=== PATIENT | male | born 1960 | race Caucasian/White ===

== ENCOUNTER → 2018-05-11 12:01 | Outpatient (CLI) | payer BC, SELFPAY ==
--- NOTE | 2018-05-11 12:08 | RAD_ITS ---
STUDY: X-RAY - LUMBAR SPINE REASON FOR EXAM: Male, 58 years old. lumbago with sciatica TECHNIQUE: 5 view(s) of the lumbar spine were obtained. COMPARISON: None FINDINGS: Normal lumbar lordosis. There is multilevel endplate spondylosis of the lumbar vertebrae. There is multi-level degenerative disc disease with multi-level disc space narrowing. The soft tissue structures are unremarkable. RAD/L/S Spine Min 4 Views IMPRESSION: Degenerative changes of the spine. Electronically Signed: Joesph Cuevas MD at 9:40 EST Tel , Service support ,
[2018-05-11 14:25] LABS: Anion Gap 10 (5-15); BUN 15 mg/dL (7-18); BUN/Creat Ratio 13.9 RATIO (10-20); Calcium,Total 9.1 mg/dL (8.5-10.1); Chloride 107 mmol/L (98-107); Cholesterol 256 mg/dL (200); Creatinine, Serum 1.08 mg/dL (0.70-1.30); EST Glomerular Filtration Rate 75 mL/min (>60); Est Glom Filt Rate - Afr Amer 90 mL/min (>60); Glucose 94 mg/dL (74-106); High Density Lipoprotein 59 mg/dL; PSA,Total - Annual Screen 0.69 ng/mL (0.00-4.00); Potassium 4.1 mmol/L (3.5-5.1); Sodium Level 138 mmol/L (136-145); Triglycerides 160 mg/dL; Very Low Density Lipoprotein 32 mg/dL (5-40)
== END ==
PROVIDERS: Family Provider Family Medicine; PCP Family Medicine; Referring Provider Family Medicine; Visit Provider Family Medicine
DX: Z00.00 Encounter for general adult medical examination without abnormal findings (principal); M54.41 Lumbago with sciatica, right side
CPT/HCPCS: 36415; 72110; 80048; 80061; 84153; G0103

== ENCOUNTER → 2018-05-18 10:34 | Outpatient (CLI) | payer BC, SELFPAY ==
--- NOTE | 2018-05-18 10:36 | MRI_ITS ---
STUDY: MRI LUMBAR SPINE WITHOUT CONTRAST REASON FOR EXAM: Male, 58 years old. Pain with right lower extremity radiculopathy TECHNIQUE: Standardized fat and water weighted pulse sequences were obtained in the sagittal and axial planes. COMPARISON: None FINDINGS: T12-L1: Normal endplates. Normal disc height, hydration and morphology. Normal bilateral facet joints. Normal central canal and bilateral lateral recesses. Normal bilateral intervertebral neural foramina. Normal lumbar lordosis. There is no substantial scoliosis. Normal conus medullaris that terminates at the L1-2: Normal endplates. There is mild annular disc bulge and mild bilateral facet arthrosis. No central canal or foraminal narrowing.. L2-3: Normal endplates. Normal disc height, hydration and morphology. Normal bilateral facet joints. Normal central canal and bilateral lateral recesses. Normal bilateral intervertebral neural foramina. L3-4: Normal endplates. There is mild annular disc bulge and asymmetric right paracentral, foraminal and extraforaminal disc bulge abutting the descending nerve root. Left greater than right facet arthrosis. No central canal narrowing. Mild right foraminal narrowing. L4-5: Normal endplates. There is moderate intervertebral disc space narrowing and mild annular disc bulge. Bilateral facet arthrosis. Mild to moderate central canal narrowing. Mild left foraminal narrowing. L5-S1: Normal endplates. There is mild posterior disc bulge and annular tear. Left facet arthrosis. No central canal narrowing or foraminal.. Normal visualized sacral ala. Normal visualized paraspinous soft tissue structures. MRI/Spine Lumbar (Routine) IMPRESSION: Multilevel degenerative disc disease is most prominent at L3-L4 and L4-L5 as described above. Electronically Signed: Criselda Biswas, at 16:20 EDT Tel , Service support ,
== END ==
PROVIDERS: Family Provider Family Medicine; PCP Family Medicine; Referring Provider Family Medicine; Visit Provider Family Medicine
DX: M54.41 Lumbago with sciatica, right side (principal)
CPT/HCPCS: 72148

== ENCOUNTER 2018-05-23 11:22 | Outpatient (RCR) | payer BC, SELFPAY ==
--- NOTE | 2018-05-24 10:23 | HP.PTEVAL_ITS ---
Patient's Visit Information SHALINI SANTOS is a 58 year old M referred to Physical Therapy by Jasiel Jain MD with a diagnosis of LUMBAGO W/SCIATICA. Date of Evaluation: 05/23/18 Physical Therapist: Jenna Neff PT, Cert MDT - Visit Plan Frequency: 2-3x /Week Duration: 4-6 Weeks Plan: MODALITIES NEEDED. GARIMA TESTING. POSTURE CORRECTION/STRENGTHENING, INSTRUCTION IN APPROPRIATE BODY MECHANICS AND ACTIVITY MODIFICATIONS. DLS STARTING WITH A NEUTRAL SPINE PROGRESSING ROM TOLERATED. DELMIS LE ROM, STRETCHING AND STRENGTHENING. HEP INSTRUCTION. 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 Disability: NO. Present symptoms: RIGHT LOW BACK INTERMITTENT SHARP PAIN. RIGHT BUTTOCK PAIN, RIGHT HIP PAIN, RIGHT THIGH, LEG AND FOOT PAIN THAT SOMETIMES FEELS COLD/WET. TINGLING IN TOES. NO LLE SX'S. DID HAVE MUSCLE SPASMS IN LOW BACK AT ONSET. Present since: 04/17/18. Pain Scale: WORST 9/10, LEAST 0/10. Currently: 05/15. Commenced as a result of: NO APPARENT REASON. Symptoms at onset: MUSCLE SPASMS IN LOW BACK. Worse: SITTING, WALKING, STANDING, BENDING, LIFTING, DRIVING. Better: LYING DOWN, PAIN MEDICINE. Disturbed sleep: YES. Previous history/Previous treatment: NO BACK SURGERY. NO RIGHT LE SX. NO BACK INJECTIONS. HISTORY OF EPISODIC LBP TREATED BY CHIROPRACTOR FROM THE S TO 2005 AND RETURNED RECENTLY FOR THIS EPISODE. REALLY DID OK FROM 2005 UNTIL NOW. THIS EPISODE HAS HAD PREDNISONE, MUSCLE RELAXER, PAIN MEDICINE AND CHIROPRACTOR TREATMENTS. PREDNISONE AND MUSCLE RELAXER SEEMED TO BE HELPING BUT WENT TO CHIROPRACTOR BECAUSE RIGHT LEG SX'S. TEMPORARY HELP WITH CHIROPRACTIC ADJUSTMENTS AND ESTIM AND US. STILL GOING TO CHIROPRACTOR - STARTED DAILY THEN DECREASED TO AT LEAST 2X'S A WEEK. HE REPORTS HE IS NOT IMPROVING OVER-ALL AT THIS POINT - STAYING THE SAME. PATIENT REPORTS THAT A COUPLE MONTHS BEFORE 2018 FOR A COUPLE WEEKS HE LOST CONTROL OF HIS RIGHT FOOT BUT IT RECOVERED. Coughing/sneezing/straining: NE. Gait: PATIENT REPORTS WHEN HE WALKS HE CAN FEEL IT IN HIS HIP, LEG AND TOES AND IT CAUSES HIM TO LIMP RIGHT LE. LEFT LEG IS FINE. Difficulty initiating urinatin: NO. Accidents: NO. Unexplained weight loss: NO. Imaging: RECENT LUMBAR X- RAYS AND MRI WITH MRI STATING: L3-4: Normal endplates. There is mild annular disc bulge and asymmetric. right paracentral, foraminal and extraforaminal disc bulge abutting the. descending nerve root. Left greater than right facet arthrosis. No. central canal narrowing. Mild right foraminal narrowing. L4- 5: Normal endplates. There is moderate intervertebral disc space. narrowing and mild annular disc bulge. Bilateral facet arthrosis. Mild to. moderate central canal narrowing. Mild left foraminal narrowing. L5-S1: Normal endplates. There is mild posterior disc bulge and annular. tear. Left facet arthrosis. No central canal narrowing or foraminal.. Normal visualized sacral ala. Normal visualized paraspinous soft tissue structures. MRI/Spine Lumbar (Routine). IMPRESSION: Multilevel degenerative disc disease is most prominent at L3-L4 and L4-L5. PMH: UNREMARKABLE. Recent major surgery: NO. PLOF (Prior Level of Function): UNLIMITED. OTHER: PATIENT REPORTS HE IS VERY ACTIVE. QUESTIONING HOW PHYSICAL THERAPY IS GOING TO HELP HIM OVER COME THIS BECAUSE HE WAS ALREADY PHYSICAL. HE REPORTS HE HAS A TREADMILL AND HE EXERCISES AND STRETCHES ON A DAILY BASIS INCLUDING TOUCHING TOES IN THE MORNING. - Objective Sitting/Standing Posture: POOR. SLOUCHED. FOWARD HEAD. ROUNDED SHOULDERS. Lordosis: REDUCED. Lateral shift: NO. Relevant shift: N/A. Active Correction of posture: WORSE - PERIPHERALIZES. Other Observations: INDEP GAIT INTO PT LIMPING ON RIGHT LE WITH INCREASED TRUNK FLEXION AND NO AD AND NO LOB. Motor deficit: RIGHT HIP 4/5, KNEE EXT 4/5, KNEE FLEX 4/5, ANKLE DORSIFLEX 4/5. LLE 5/5. Sensory deficit: DECREASED LIGHT TOUCH RIGHT TOES COMPARED TO THE LEFT. ROM deficit: TIGHT DELMIS HS'S, GASTROC SOLEUS COMPLEX AND HIP FLEXORS RIGHT > LEFT. Reflexes: UNABLE TO ELICIT RIGHT LE DTRS. LEFT DTR'S 2/3. Dural Signs: POSITIVE RIGHT LE. Lumbar mvmt loss: flex - NIL. ext - MOD. R SG - PRABHJOT. L SG - PRABHJOT. PATIENT DENIES INCREASED PAIN WITH LUMBAR ROM TESTING WITH FLEX AND EXT BUT INCREASED RIGHT HIP PAIN WITH DELMIS SG TESTING. Core strength: POOR. Palpation: NO ACUTE THORACIC OR LUMBAR, OR BUTTOCK INTO GREATER TROCH REGION TENDERNESS. OTHER: PATIENT STATING THAT HE THINKS HE WOULD PREFER TO CONTINUE WITH HIS CHIROPRACTOR FOR THIS BECAUSE HIS CHIROPRACTOR HAS SUCH A GOOD HANDLE ON WHAT IS GOING ON WITH HIM AND HIS HISTORY. THIS PT RECOMMENDED HE DISCUSS IT WITH DR. JAIN WHEN HE GOES OVER HIS MRI RESULTS WITH HIM. PATIENT MAY BENEFIT FROM PHYSICAL THERAPY PER PLAN OF CARE BELOW IF PATIENT AGREEABLE BUT HE WOULD LIKE TO SEE DR. JAIN TO DISCUSS HIS TREATMENT OPTIONS BEFORE SCHEDULING PT. - Goals Goal 1:: DECREASE C/O LOW BACK AND RIGHT LE SX'S. Goal Time Frame: 4-6 Weeks Goal 2:: IMPROVE SITTING, STANDING, WALKING, ADL, SLEEP AND WORK FUNCTION Goal Time Frame: 4-6 Weeks Goal 3:: INSTRUCT IN PROPHYLAXIS Goal Time Frame: 4-6 Weeks - Rehabilitation Potential Rehabilitation Potential: Fair - Anticipated Interventions Patient/Client Instruction: Educate patient on: Condition, Plan of Care, Risk Factors, Benefits of Fitness Program For the Purpose of:: To improve self management Therapeutic Exercise to Include: Strength training, Body mechanics, Postural training, Flexibilty training, Gait and locomotor training, In an aquatic setting, Active ROM, Dynamic Lumbar Stabilization For the Purpose of:: To decrease pain, To increase ROM, To improve muscle performance and motor function, To increase tolerance to activity/condition/position, To improve ability of physical actions for home/community/work/leisure, To improve gait and locomotor functions TENS: Yes IF ES: Yes Cryotherapy (ice pack, ice massage): Yes Thermo therapy (hot pack): Yes Ultrasound (thermal/non thermal): Yes For the Purpose of:: To decrease pain, To decrease swelling/inflammation, To increase ROM, To improve nutrient delivery to tissue Thank you for the opportunity to evaluate your patient. For Medicare and Medicare HMO plans, please review the plan of care and approve it. It will need to be FAXED BACK to us at [phone] for Medicare purposes. For Medicare only, by signing this I certify the plan of care. Please let me know if there are questions or concerns regarding this plan of care. Physician Signature: Date:
--- NOTE | 2018-08-02 13:35 | HP.PTDCNRP_ITS ---
HP - Discharge Summary (1) - Patient Information SHALINI SANTSO was seen in my office for initial evaluation on 05/23/18. The following Plan of Care was established for this patient: Initial Frequency: 2-3x /Week Initial Duration: 4-6 Weeks - Anticipated Interventions Patient/Client Instruction: Educate patient on: Condition, Plan of Care, Risk Factors, Benefits of Fitness Program For the Purpose of:: To improve self management Therapeutic Exercise to Include: Strength training, Body mechanics, Postural training, Flexibilty training, Gait and locomotor training, In an aquatic setting, Active ROM, Dynamic Lumbar Stabilization For the Purpose of:: To decrease pain, To increase ROM, To improve muscle performance and motor function, To increase tolerance to act ivity/condition/position, To improve ability of physical actions for home/community/work/leisure, To improve gait and locomotor functions TENS: Yes IF ES: Yes Cryotherapy (ice pack, ice massage): Yes Thermo therapy (hot pack): Yes Ultrasound (thermal/non thermal): Yes For the Purpose of:: To decrease pain, To decrease swelling/inflammation, To increase ROM, To improve nutrient delivery to tissue This patient was last seen in our office 05/23/18. Pertinent comments regarding their Physical therapy will appear below: This patient has not returned to Physical Therapy and is appropriate to return to MD for further follow-up as needed. At this point I will be discontinuing this patient from physical therapy. I would be happy to see this patient again in the future if found appropriate by the physician. Thank you! Jenna Nfef, PT, Cert MDT
== END 2018-05-23 19:00 | disposition home or self-care (01) ==
LOC: PT 11:22
PROVIDERS: Family Provider Family Medicine; PCP Family Medicine; Referring Provider Family Medicine; Visit Provider Family Medicine
DX: M54.41 Lumbago with sciatica, right side (principal)
CPT/HCPCS: 97162; 97530

== ENCOUNTER 2019-01-24 09:47 | Outpatient (RCR) | payer BC, SELFPAY ==
--- NOTE | 2019-01-24 11:14 | HP.PTEVAL ---
Patient's Visit Information SHALINI SANTOS is a 58 year old M referred to Physical Therapy by MATTHIAS KELLY with a diagnosis of LUMBAR RADICULOPATHY ,PAIN OF RIGHT HIP JOINT. Date of Evaluation: 01/24/19 Physical Therapist: Raciel Hills, PT, Cert MDT, OCS - Visit Plan Frequency: 1VISIT Plan: PT EVAL FOR HEP FOR DLS,FKLEXABLITY ,AND HIP STRENGTHENING - Subjective Findings: This 58 y/o male presents to physical therapy with lumbar radiculopathy.Patient had laminectomy lumbar on October [address] Garcia at [facility]. Patient had pain last year with lumbar radiculopathy . Had consult with PT then eventually had MRI. Patient intially tried injection pain . Patient had some pain in right Dec 25 noticed more pain in groin.Patient tried predisone and anti-inflammtory. Patient pain is better. Coughing/sneezing-. Bowel/bladder-. Denies parathesia/tingling -. Patient plan to RTW Dec2.Patient is a Fundraising Consultant. Patient alleviating factors walking ,satnding. Aggravating factors sitting,lifting,bending. Patient condition affects QOL and RTW. SOCAIL: Lives with girlfriend. VOCATION: [employer] - Objective POSTURE: mild foward posture. PALAPTION: unremarble. GAIT: reciprocal pattern. NEURO: intact. MMT: quads/hip/hamstrings/ankld 4/5. LUMBAR ROM: flexion min loss ,extension min loss,side glides min loss. FLEXABLITY: hams min/md tight - Special Tests L/S Slump test left side: Negative L/S Slump test right side: Negative L/S Left Straight Leg Raise: Negative L/S Right Straight Leg Raise: Negative - Goals Goal 1:: PROVIDE HEP. Goal Time Frame: 1VISIT Goal 2:: Instructed in posture/body mechanics for job deemnads. - Rehabilitation Potential Physical Therapy Diagnosis: This patient underwent s/p laminectomy in Oct doing well had episode with increase pain in thigh,anti-inflammatory helped and currentlt needs HEP to diminish recurrance of symptoms. Rehabilitation Potential: Good - Anticipated Interventions Patient/Client Instruction: Educate patient on: Condition, Plan of Care For the Purpose of:: To decrease pain, To reduce risk of recurrence Other: HEP Therapeutic Exercise to Include: Strength training, Flexibilty training, Dynamic Lumbar Stabilization For the Purpose of:: To decrease pain, To improve ability of physical actions for home/community/work/leisure, To reduce risk of recurrence Other: HEP Thank you for the opportunity to evaluate your patient. For Medicare and Medicare HMO plans, please review the plan of care and approve it. It will need to be FAXED BACK to us at [phone] for Medicare purposes. For Medicare only, by signing this I certify the plan of care. Please let me know if there are questions or concerns regarding this plan of care. Physician Signature: Date:
== END 2019-01-24 19:00 | disposition home or self-care (01) ==
LOC: PT 09:47
PROVIDERS: Family Provider Family Medicine; PCP Family Medicine
DX: M54.16 Radiculopathy, lumbar region (principal)
CPT/HCPCS: 97110; 97161

== ENCOUNTER 2019-02-15 20:55 | Observation (INO) | payer BC, SELFPAY ==
[2019-02-15 20:56] VITALS: BP 140/82; PULSE 88; RESP 17; TEMP 36.4; O2SAT 99; BMI 30.5
--- NOTE | 2019-02-15 21:17 | CT_ITS ---
STUDY: CT LUMBAR SPINE WITHOUT CONTRAST REASON FOR EXAM: Male, 58 years old. Right-sided back pain. Recent surgery in November 2018 at L4-5 RADIATION DOSAGE (If Supplied By Facility): CTDIvol = ( 16.43 ) mGy, DLP = ( 465.15 ) mGycm TECHNIQUE: The patient was scanned in a multi detector CT scanner. High resolution transaxial imaging was performed. Images were obtained from T12 to sacrum. Sagittal and coronal images were reconstructed. Individualized dose optimization techniques were used for this CT. COMPARISON: None FINDINGS: Normal lumbar lordosis. There is no substantial scoliosis. Normal vertebrae of the lumbar spine. There is no demonstrated compression deformity or fracture of the visualized lumbar vertebrae. L1-2: Disc bulge with mild spurring. Normal bilateral facet joints. Normal central canal and bilateral lateral recesses. Normal bilateral intervertebral neural foramina. L2-3: Disc bulge with mild spurring. Mild spurring of a bilateral facet joints. Normal central canal and bilateral lateral recesses. Normal bilateral intervertebral neural foramina. L3-4: Disc bulge with spurring flattening the thecal sac. Facet spurring. Moderate canal stenosis. Right greater than left foraminal narrowing L4-5: Disc space narrowing on the left with endplate change. Disc bulge and spurring. Left foraminal narrowing. Right laminotomy L5-S1: Disc bulge with mild spurring. Mild facet spurring. No canal stenosis. Neural foramina patent. Normal visualized paraspinous soft tissue structures. CT/Spine Lumbar without Contrast IMPRESSION: Postoperative and degenerative changes, as described above. Electronically Signed: Kamron Lopez MD at 22:17 EST , Service support ,
[2019-02-15] MEDS: Ketorolac 30 MG/ML Syringe IV (21:25)
[2019-02-15] MEDS: HYDROmorphone 1 MG/ML Syringe 0.5 MG IV (21:26)
[2019-02-15] MEDS: Ondansetron 4 MG/2 ML Vial IV (21:30)
--- NOTE | 2019-02-15 21:50 | ED.VIS.GEN ---
History of Present Illness Chief Complaint: Lower Extremity Injury Detail of Chief Complaint: Back pain and right leg pain Informant: Patient Onset: Days - 5 days Current Severity: Moderate Maximum Severity: Severe Narrative: Patient presents with low back pain radiating into the right leg. Patient had back surgery on October 24 at [facility]. He states they cleaned out some bony arthritis around his disks at the L4-5 level. Patient states he was doing well and went back to work recently. 5 days ago he was down on his right knee when he had sudden increased pain in the right low back shooting down the right leg causing him to fall to his side. Patient is currently taking Lyrica that was written by his primary care physician 2 days ago. He has intermittently been taking diclofenac and [place]. Patient is scheduled for an MRI next week but presented to the emergency room tonight due to severe pain that is not controlled. He has not had paresthesias in his legs. He has not had problems with bowel or bladder control. - Past Medical History (1) History of back surgery Status: Chronic Past Medical History - Allergies and Home Meds Allergies/Adverse Reactions: Allergies gabapentin Allergy (Verified 02/15/19 20:56) Itching shellfish derived Allergy (Verified 02/15/19 20:56) Vomiting Primary Care Physician: Jasiel Gooden MD [Primary Care Provider] - Prior records reviewed: Yes Lives: With Family Smoking Status: Former smoker Review of Systems General: Denies: Chills, Fever Eyes: Denies: Visual changes - bilaterally ENT: Denies: Bilateral ear pain Cardiovascular: Denies: Chest pain Respiratory: Denies: Dyspnea, Cough Gastrointestinal: Denies: Abdominal pain, Nausea, Vomiting, Diarrhea Genitourinary: Denies: Dysuria Musculoskeletal: Reports: Back pain, Extremity Pain. Denies: Swelling Neurological: Denies: Parasthesia Endocrine: Denies: Polyuria, Polydipsia Hematologic: Denies: Easy bruising Allergy: Denies: Uticaria Physical Exam Vital Signs/Narrative: Vital Signs Temp Pulse Resp BP Pulse Ox 02/15/19 20:56 97.6 F L 88 17 140/82 H 99 Inital Vital Signs reviewed: Yes General: Well nourished, Well developed Head: Normocephalic ENT: Moist mucous membranes Neck: Supple Cardiovascular: Regular rate, Regular rhythm Respiratory: No distress, CTA bilaterally Abdomen: Soft, Nontender, No masses, Hypoactive bowel sounds Back: - - Tenderness in the right low lumbar paraspinal muscles and over the sciatic notch. Extremities: Tenderness - Tenderness over the proximal thigh. No calf tenderness. Skin: Normal color, No rash Neurological: Alert, Oriented x3, - - Patient has good range of motion of right lower extremity with slow purposeful movement. No paresthesias. Psychological: Normal affect Diagnostic/Tx/Re-eval Impressions Lumbar Spine CT 02/15/19 21:17 IMPRESSION: Postoperative and degenerative changes, as described above. Electronically Signed: Kamron Lopez MD at 22:17 EST , Service support , 02/15/19 21:17 CT Lumbar [Spine Lumbar without Contrast] [CT] Stat - Medical Decision Making Patient was given 0.5 mg Dilaudid and Zofran IV. On repeat evaluation he reported minimal improvement. He was given 1 mg of IV Dilaudid. At this time patient does note some improvement. I did discuss CT with him but did advise him that I cannot evaluate the disks or nerves on this. He will require an MRI which he is scheduled for on the . At this time I see no conditions where I can call an MRI for an emergent imaging test. This was discussed with patient. He only has a few [place] left and will be given a prescription for Percocet. I encouraged him to continue the anti-inflammatories as well as start the antispasm medication that he had already been written. Addendum: Nursing staff states patient went to sit up on the side of bed and had increased pain. He does not feel that he is able to go home and is requesting admission for pain control. ED Disposition - Plan for ED Patient: Disposition: Acute Care Hospital [facility] Diagnosis: Back pain Instructions: BACK PAIN w/ SCIATICA Prescriptions: Oxycodone HCl/Acetaminophen [Percocet 5/325] 1 tab PO Q6H PRN PRN 5 Days #20 tab PRN Reason: Pain Score 4-10/10 Prescription Printed Referrals: Jasiel Gooden MD [Primary Care Provider] - Additional Instructions: Follow-up with your surgeon as soon as possible.
[2019-02-15] MEDS: HYDROmorphone 1 MG/ML Syringe IV (23:05)
[2019-02-15 23:07] VITALS: BP 125/85; PULSE 72; RESP 16; O2SAT 98
--- NOTE | 2019-02-16 00:02 | ED.RN ---
RN INTO ROOM TO D/C PATIENT. PATIENT UNABLE TO GET OUT OF BED INTO THE WHEEL CHAIR. RN HELPED PATIENT BACK INTO BED. RN NOTIFIED DR. ZHONG AT THIS TIME. RN WILL CONTINUE TO MONITOR.
--- NOTE | 2019-02-16 00:04 | HP.PCM_ITS ---
Problem List (1) Intractable neuropathic pain of right lower extremity Status: Acute (2) History of back surgery Status: Chronic History of Present Illness Date of Admission: 02/16/19 Chief Complaint: right lower extremity pain The patient is a 58 year old M with a significant history of L4-L5 disc disease who reportedly had L4-L5 discectomy surgery on October 24, 2018 presenting with excruciating persistent right hip pain that radiates to the entire right lower extremity. Because of pain in his right lower extremity patient has fallen or lowered himself to the floor multiple times. Because of excruciating pain in his right lower extremity patient could not get off the toilet. At the time of presentation he was on [place]; gabapentin and Lyrica. He also has prescribed Flexeril that he does not take because it has not helped him. Patient had his surgery as above with Dr. Maldonado, Orthopedic surgery. The surgery was at [facility]. Patient has a scheduled MRI of his lumbar area at our hospital. This test was ordered by Dr. Robles. At the emergency department although patient received pain medication. However, patient could not be discharged home because of severe pain that was affecting his mobility. Therefore a decision was made to admit patients. Patient denies bowel or bladder incontinence. Past Medical History Past Medical History (Chronic Problems): Chronic Problems History of back surgery (Chronic) Medical History: Medical History (Last Updated 02/16/19 @ 04:17 by Eric Vu MD) Sciatica M54.30 Allergies gabapentin Allergy (Verified 02/15/19 20:56) Itching shellfish derived Allergy (Verified 02/15/19 20:56) Vomiting Home Medications: Ambulatory Orders Medication Instructions Recorded Cyclobenzaprine HCl 10 mg PO TID 02/15/19 Diclofenac Sodium 75 mg PO DAILY 02/15/19 Hydrocodone/Acetaminophen 1 tab PO Q6H PRN PRN 02/15/19 [Hydrocodon-Acetaminophen 5-325] Oxycodone HCl/Acetaminophen 1 tab PO Q6H PRN PRN 5 Days #20 tab 02/15/19 [Percocet 5/325] Pregabalin 50 mg PO BID 02/15/19 Surgical History: - - L4-L5 disc surgery Lives: With Family Smoking Status: Former smoker Alcohol: Occasional - *Family History Maternal History Items: Cancer - His mother had pancreatic cancer., Diabetes - Mother had diabetes. Paternal History Items: Hypertension, - - His father had hypertension; spinal stenosis. His father from aortic aneurysm. Review of Systems Constitutional: Denies: Chills, Fever, Weight Change HEENT: Denies: Head Aches, Sinus Congestion, Sinus Drainage Cardiovascular: Denies: Chest Pain, Palpitations Respiratory: Denies: Cough, Shortness of breath at rest, Sputum production Gastrointestinal: Denies: Abdominal Pain, Nausea, Vomiting Genitourinary: Denies: Dysuria Musculoskeletal: Reports: Leg Pain. Denies: Joint Pain, Joint Tenderness Skin: Denies: Rash, Wounds Neurological: Denies: Numbness, Tingling, Focal weakness Psychiatric: Denies: Anxiety, Depression, Homicidal Ideations, Suicidal Ideations Hematologic/ Lymphatic: Denies: Easy Bruising, Easy Bleeding VTE Information - Inpt Only VTE Present on Admission: No VTE Mechan Device Prophylaxis: None VTE Pharm Prophylaxis ordered?: Yes Patient Problems: Active and Suspected Problems Intractable neuropathic pain of right lower extremity (Acute) - Physical Exam Vitals/I&O's: Vital Signs Temp Pulse Resp BP Pulse Ox 97.6 F L 72 16 125/85 H 98 02/15/19 20:56 02/15/19 23:07 02/15/19 23:07 02/15/19 23:07 02/15/19 23:07 Oxygen Delivery Method Room Air Weight: 102.058 kg Body Mass Index (BMI) 30.5 General: Alert, Oriented x3, Cooperative HEENT: Atraumatic, PERRLA, EOMI, Normocephalic Neck: Supple, No JVD, Negative Carotid Bruits Lungs: Clear to auscultation, Normal air movement Cardiovascular: Regular rate, No murmurs Abdomen: Bowel Sounds Present, Soft, Non Tender Extremities: No edema, Capillary Refill Less than 3 Seconds Skin: No rashes, No breakdown Musculoskeletal: No Tenderness to Palpation of Joints or Extremities, - - Straight leg test of the right lower extremity produced excruciating pain in his right hip. Leg test in his left leg was unremarkable. Strength was 5 out of 5 in all lower extremities. Neurological: Cranial nerves II-XII grossly intact Psych/Mental Status: Normal Affect, Appropriate Assessment/Plan All Active Problems Intractable neuropathic pain of right lower extremity (Acute) The patient is a 58 year old M with a significant history of L4-L5 disc disease who reportedly had L4-L5 discectomy surgery on October 24, 2018 presenting with excruciating persistent right hip pain that radiates to the entire right lower extremity. Intractable right lower extremity pain Discussed steroids with patient. Initially patient was reluctant to start steroids. Allegedly, he was told that if he receives steroid he cannot have surgery. He reports previous history of steroid shots. Finally patient accepted to be started on Decadron. Will start patient on Decadron 4 mg every 6 hours scheduled for now. Will order Dilaudid p.o. for severe pain and; will continue his home [place] for moderate pain. Continue diclofenac; Lyrica and Flexeril. We will go ahead and get the MRI of his lumbar area while inpatient. Consider discussing the results of the MRI with patient's orthopedic surgeon. Bowel protocol ordered. PRN Zofran ordered. PT and OT to work with patient. DVT Prophylaxis Subcutaneous Lovenox. Code Visit OBSV E&M: 21791 Initial observation care L2
[2019-02-16 00:24] VITALS: BP 125/87; PULSE 72; RESP 16; TEMP 36.4; O2SAT 98
[2019-02-16 01:07] VITALS: BMI 29.9
[2019-02-16 01:08] VITALS: BP 126/88; PULSE 67; RESP 20; TEMP 36.6; O2SAT 95
--- NOTE | 2019-02-16 02:03 | MRI_ITS ---
STUDY: MRI LUMBAR SPINE WITH AND WITHOUT CONTRAST REASON FOR EXAM: Male, 58 years old. Low back pain, right leg pain, prior surgery. TECHNIQUE: Standardized fat and water weighted pulse sequences were obtained in the sagittal and axial planes. Dotarrem 20ml;IV was administered for the contrast portion of the examination. COMPARISON: 05/18/2018 FINDINGS: T12-L1: Normal endplates. Normal disc height, hydration and morphology. Normal bilateral facet joints. Normal central canal and bilateral lateral recesses. Normal bilateral intervertebral neural foramina. Normal lumbar lordosis. There is no substantial scoliosis. Normal conus medullaris that terminates at the L1. L1-2: Normal endplates. Normal disc height, hydration and morphology. Normal bilateral facet joints. Normal central canal and bilateral lateral recesses. Normal bilateral intervertebral neural foramina. L2-3: Normal endplates. Normal disc height, hydration and morphology. Normal bilateral facet joints. Normal central canal and bilateral lateral recesses. Normal bilateral intervertebral neural foramina. L3-4: No change in the mild right paracentral and foraminal disc protrusion which produces mild right lateral recess stenosis and mild right neural foraminal stenosis. Associated Modic type II endplate changes. L4-5: Interval right laminotomy. Moderate bilateral facet hypertrophy. No change in the mild broad disc protrusion which produces mild spinal stenosis with mild bilateral lateral recess stenosis and mild left neural foraminal stenosis. L5-S1: Mild bilateral facet hypertrophy. No change in the small central disc protrusion which produces minimal spinal stenosis and no neural foraminal stenosis. Normal visualized sacral ala. Normal visualized paraspinous soft tissue structures. There is some enhancing scar tissue at the site of the right laminotomy at L4/L5 posterior to the thecal sac but without mass effect or nerve root encasement. MRI/Spine Lumbar W/WO Contrast IMPRESSION: Postsurgical changes and degenerative disc disease as described above. Electronically Signed: Gallo Fermin MD at 11:04 EST Tel , Service support ,
[2019-02-16] MEDS: dexAMETHasone 4 MG Tablet PO ×4 (02:36→16:56)
[2019-02-16] MEDS: HYDROmorphone 2 MG TABLET 1 MG PO (02:43)
[2019-02-16] MEDS: HYDROcodone Bitartrate/Apap 5/325 Tablet PO (04:07)
[2019-02-16] MEDS: cycloBENZAPRine HCl 10 MG Tablet PO ×2 (06:00→13:26)
[2019-02-16 06:53] VITALS: BP 131/85; PULSE 59; RESP 18; TEMP 36.4; O2SAT 94
[2019-02-16] MEDS: Diclofenac 75 MG Tablet PO (08:50)
[2019-02-16] MEDS: Pregabalin 50 MG Capsule PO (08:52)
[2019-02-16] MEDS: oxyCODONE 5 MG Tablet 10 MG PO (08:53)
[2019-02-16] MEDS: Enoxaparin 40 MG/0.4 ML Syringe SC (08:53)
[2019-02-16 09:01] VITALS: BP 133/93; PULSE 82; RESP 16; TEMP 36.3; O2SAT 97
--- NOTE | 2019-02-16 09:34 | PN_ITS ---
Patient Problems: Active and Suspected Problems (Last Updated 02/16/19 @ 04:17 by Eric Vu MD) Intractable neuropathic pain of right lower extremity (Acute) Reason for Visit: right leg pain Subjective: Back surgery in October of this year. Was doing well up until this past Wednesday when he was bending over to help with some puppies and then started having pain in his right hip that radiated down his right anterior leg. No saddle anesthesia, no bowel or bladder incontinence. This is similar to when he had issues with his back previously before surgery, however he does not have right dropfoot at this time. Vitals/I&O's: Vital Signs Temp Pulse Resp BP Pulse Ox 36.3 C L 82 16 133/93 H 97 02/16/19 09:01 02/16/19 09:01 02/16/19 09:01 02/16/19 09:01 02/16/19 09:01 Oxygen Delivery Method Room Air Weight: 100.3 kg Body Mass Index (BMI) 29.9 Intake and Output for Last 24 Hours 02/14/19 02/15/19 02/16/19 23:59 23:59 23:59 Intake Total 500 / 500 Balance 500 / 500 General: Alert, Cooperative, No apparent distress HEENT: Atraumatic, Normocephalic Musculoskeletal: - - Full range of motion with the right hip without pain. Patient states that his pain actually improves with eversion of the right hip. Neurological: Deep Tendon Reflexes 2+/4 and Symmetrical, - - No clonus. Patient has 5-5 strength in bilateral great toe dorsiflexion, bilateral foot dorsiflexion and plantarflexion Psych/Mental Status: Normal Affect, Appropriate Current Medications Cyclobenzaprine HCl (Flexeril) 10 mg PO TID [facility] Last Admin: 02/16/19 06:00 Dose: 10 mg Documented by: Dexamethasone (Decadron) 4 mg PO Q6 [facility] Last Admin: 02/16/19 06:00 Dose: 4 mg Documented by: Diclofenac Sodium (Voltaren) 75 mg PO DAILYCM [facility] Last Admin: 02/16/19 08:50 Dose: 75 mg Documented by: Enoxaparin Sodium (Lovenox) 40 mg SC DAILY [facility] Last Admin: 02/16/19 08:53 Dose: 40 mg Documented by: Glucagon () 1 mg IM .X1 PRN PRN Reason: Hypoglycemia Hydromorphone HCl (Dilaudid Tablet) 2 mg PO Q4H PRN PRN PRN Reason: breakthrough pain Sodium Chloride () 250 mls @ 15 mls/hr IV .[id number] PRN PRN Reason: Saline Flush Dextrose (Dextrose 10%-Water) 250 mls @ 999 mls/hr IV X1 PRN; Protocol PRN Reason: HYPOGLYCEMIA Ondansetron HCl (Zofran) 4 mg IV Q8H PRN PRN PRN Reason: NAUSEA/VOMITING Oxycodone HCl (Oxyir) 5 mg PO Q4H PRN PRN PRN Reason: Pain Score 3-5/10 Oxycodone HCl (Oxyir) 10 mg PO Q4H PRN PRN PRN Reason: Pain Score 6-10/10 Pregabalin (Lyrica) 50 mg PO BID [facility] Last Admin: 02/16/19 08:52 Dose: 50 mg Documented by: Senna/Docusate Sodium (Senokot-S, Una-Colace) 2 tablet PO DAILY PRN PRN PRN Reason: CONSTIPATION Sodium Chloride () 10 - 40 ml IV UD PRN PRN Reason: SALINE FLUSH STROKE Vital Signs/Narrative: Vital Signs Temp Pulse Resp BP Pulse Ox 02/16/19 09:01 36.3 C L 82 16 133/93 H 97 02/16/19 06:53 36.4 C L 59 L 18 131/85 H 94 Medical Necessity - Tobacco Use Smoking Status: Former smoker Assessment/Plan All Active Problems (Last Updated 02/16/19 @ 04:17 by Eric Vu MD) Intractable neuropathic pain of right lower extremity (Acute) 1. Intractable right hip and leg pain * Given the radicular type symptoms and similarity to his symptoms from previous, this seems more concerning for involving his back rather than his hip * MRI of the lumbar spine has been ordered and yet to be performed. * Pain has not been adequately palliated with the hydrocodone so we will start the patient on oxycodone for pain plus have the hydromorphone available for breakthrough pain. * Will continue with the dexamethasone for now * Based on the results, will plan to speak with Dr. Robles, of spine surgery about further recommendations 2. VTE prophylaxis with enoxaparin Case discussed with the patient's spouse at bedside. Code Visit Procedures: Other Procedure - See Report - non-billable rounding
[2019-02-16 11:19] VITALS: BP 130/91; PULSE 98; RESP 16; TEMP 37.1; O2SAT 96
[2019-02-16] MEDS: HYDROmorphone 2 MG TABLET PO ×2 (11:34→15:46)
[2019-02-16 14:24] VITALS: BP 124/91; PULSE 87; RESP 16; TEMP 36.5; O2SAT 94
--- NOTE | 2019-02-16 17:03 | PCM.DC ---
- Discharge Diagnoses Current Active Problems: Current Active and Chronic Problems (Last Updated 02/16/19 @ 04:17 by Eric Vu MD) History of back surgery (Chronic) Intractable neuropathic pain of right lower extremity (Acute) You will use the following diet at home:: No restrictions Discharge Activity: Return to Normal Activity - as tolerated, Use Walker Call your doctor if you observe: - - increased right leg pain. bladder or bowel incontinence. Instructions: BACK PAIN w/ SCIATICA Allergies/Adverse Reactions: Allergies gabapentin Allergy (Verified 02/15/19 20:56) Itching shellfish derived Allergy (Verified 02/15/19 20:56) Vomiting Medications to take at Discharge Cyclobenzaprine HCl 10 mg PO TID 02/15/19 Diclofenac Sodium 75 mg PO DAILY 02/15/19 Pregabalin 50 mg PO BID 02/15/19 Oxycodone [Oxyir] 10 mg PO Q4H PRN PRN #18 tab 02/16/19 Prednisone 4 tab PO DAILY #20 tab.ds.pk 02/16/19 The following prescriptions were given: Oxycodone [Oxyir] 10 mg PO Q4H PRN PRN #18 tab PRN Reason: Pain Score 6-10/10 Transmission Status: Sent to [facility] Prednisone 4 tab PO DAILY #20 tab.ds.pk Transmission Status: Sent to [facility] Orders to be completed after discharge: Shower Stool/Bench Location: None Selected Wheeled Walker Location: None Selected Physical Therapy Evaluation Time Frame: 1 Week, Location: None Selected Primary Care Physician: Jasiel Gooden MD [Primary Care Provider] - Within 1 Week Test Results: Test results from this visit will be discussed in further detail at your follow-up appointment, if applicable. Please Follow Up With: Travis When: 02/21/19 Proposed Discharge Date: 02/16/19
--- NOTE | 2019-02-16 17:05 | DS.PCM_ITS ---
Discharge Date and Diagnosis - Problem List Patient Problems: Active and Suspected Problems (Last Updated 02/16/19 @ 04:17 by Eric Vu MD) Intractable neuropathic pain of right lower extremity (Acute) Date of Admission: 02/16/19 Date of Discharge: 02/16/19 - Primary Discharge Diagnosis Active and Suspected Problems (Last Updated 02/16/19 @ 04:17 by Eric Vu MD) Intractable neuropathic pain of right lower extremity (Acute) - Secondary Discharge Diagnosis Chronic Problems History of back surgery (Chronic) Hospital Course and Treatment Imaging Results: Clinical Impression(s) from Imaging Studies Lumbar Spine CT 02/15/19 21:17 IMPRESSION: Postoperative and degenerative changes, as described above. Electronically Signed: Kamron Lopez MD at 22:17 EST , Service support , Lumbar Spine MRI 02/16/19 02:03 IMPRESSION: Postsurgical changes and degenerative disc disease as described above. Electronically Signed: Gallo Fermin MD at 11:04 EST Tel , Service support , Operations: None Procedures: None Summary of Care Provided: The patient is a 58 year old M presents with a several day history of increasing right lower extremity pain and from his hip down to his ankle. Patient had a CT that was unremarkable. Patient underwent MRI that showed postsurgical changes but no acute process. Patient was on oxycodone which helped his pain but still is having significant pain. He denies any bowel or bladder incontinence. Etiology of his pain is not clearly identified at this time though it may be peripheral nerve issue, such as sciatica but no obvious radicular component has been identified. Patient will be following up with his spine surgeon, Dr. Robles next week on the . Patient will be given 3-day course of oxycodone. Patient advised to take it only when he needs it. Patient was written for a prescription of Percocet from the ER but was never personally given that prescription. Patient also be on prednisone 40 mg for 5 days. Patient will require a walker as well as a shower chair. Patient advised to follow-up physical therapy as well. Patient was given the option to stay in the hospital and be seen by physical therapy and look at potential [facility] facility placement if he was unable to manage at home. He wished to go home instead. [] Patient Problems: Active and Suspected Problems (Last Updated 02/16/19 @ 04:17 by Eric Vu MD) Intractable neuropathic pain of right lower extremity (Acute) - Physical Exam Vitals/I&O's: Vital Signs Temp Pulse Resp BP Pulse Ox 36.5 C L 87 16 124/91 H 94 02/16/19 14:24 02/16/19 14:24 02/16/19 14:24 02/16/19 14:24 02/16/19 14:24 Oxygen Delivery Method Room Air Weight: 100.3 kg Body Mass Index (BMI) 29.9 Intake and Output for Last 24 Hours 02/14/19 02/15/19 02/16/19 23:59 23:59 23:59 Intake Total 900 / 900 Balance 900 / 900 Current Medications Cyclobenzaprine HCl (Flexeril) 10 mg PO TID REPLACED BY [facility] Last Admin: 02/16/19 13:26 Dose: 10 mg Documented by: Dexamethasone (Decadron) 4 mg PO Q6 REPLACED BY [facility] Last Admin: 02/16/19 16:56 Dose: 4 mg Documented by: [facility] Admin: 02/16/19 08:50 Dose: 75 mg Documented by: Enoxaparin Sodium (Lovenox) 40 mg SC DAILY REPLACED BY [facility] Last Admin: 02/16/19 08:53 Dose: 40 mg Documented by: Glucagon () 1 mg IM .X1 PRN PRN Reason: Hypoglycemia Hydromorphone HCl (Dilaudid Tablet) 2 mg PO Q4H PRN PRN PRN Reason: breakthrough pain Last Admin: 02/16/19 15:46 Dose: 2 mg Documented by: Sodium Chloride () 250 mls @ 15 mls/hr IV .[id number] PRN PRN Reason: Saline Flush Dextrose (Dextrose 10%-Water) 250 mls @ 999 mls/hr IV X1 PRN; Protocol PRN Reason: HYPOGLYCEMIA Ondansetron HCl (Zofran) 4 mg IV Q8H PRN PRN PRN Reason: NAUSEA/VOMITING Oxycodone HCl (Oxyir) 5 mg PO Q4H PRN PRN PRN Reason: Pain Score 3-5/10 Oxycodone HCl (Oxyir) 10 mg PO Q4H PRN PRN PRN Reason: Pain Score 6-10/10 Pregabalin (Lyrica) 50 mg PO BID [facility] Last Admin: 02/16/19 08:52 Dose: 50 mg Documented by: Senna/Docusate Sodium (Senokot-S, Una-Colace) 2 tablet PO DAILY PRN PRN PRN Reason: CONSTIPATION Sodium Chloride () 10 - 40 ml IV UD PRN PRN Reason: SALINE FLUSH Discharge Diet: No Restrictions Discharge Activity: Return to Normal Activity - as tolerated, Use Walker Call your doctor if you observe: - - increased right leg pain. bladder or bowel incontinence. Home Medications: Medications to take at Discharge Cyclobenzaprine HCl 10 mg PO TID 02/15/19 Diclofenac Sodium 75 mg PO DAILY 02/15/19 Pregabalin 50 mg PO BID 02/15/19 Oxycodone [Oxyir] 10 mg PO Q4H PRN PRN #18 tab 02/16/19 Prednisone 4 tab PO DAILY #20 tab.ds.pk 02/16/19 Following Prescrptions Were Given to Patient: Oxycodone [Oxyir] 10 mg PO Q4H PRN PRN #18 tab PRN Reason: Pain Score 6-10/10 Transmission Status: Sent to [facility] Prednisone 4 tab PO DAILY #20 tab.ds.pk Transmission Status: Sent to [facility] Other Amb Orders: Shower Stool/Bench Location: None Selected Wheeled Walker Location: None Selected Physical Therapy Evaluation Time Frame: 1 Week, Location: None Selected Primary Care Physician: Jasiel Gooden MD [Primary Care Provider] - Within 1 Week Please Follow Up With: Travis When: 02/21/19 Patient Instructions: BACK PAIN w/ SCIATICA Disposition: Home Minutes spent on discharge:: 35 Patient Condition:: Good Medical Necessity - Tobacco Use Smoking Status: Former smoker Meaningful Use Info Meaningful Use Diagnoses (Choose all that apply): None applicable Code Visit OBSV E&M: 14076 Observation care discharge
== END 2019-02-16 17:33 | disposition home or self-care (01) ==
LOC: ED 02-16 → MS3 02-16 01:27
PROVIDERS: Admitting Provider Hospitalist; Emergency Provider Emergency Medicine; Family Provider Family Medicine; PCP Family Medicine; Referring Provider Hospitalist
DX: G57.91 Unspecified mononeuropathy of right lower limb (principal); M79.604 Pain in right leg; M54.5 Low back pain; Z87.891 Personal history of nicotine dependence; Z79.899 Other long term (current) drug therapy
CPT/HCPCS: 72131; 72158; 96372; 96374; 96375; 96376; 99218; 99284; A9575; A4216; G0378; J2405

== ENCOUNTER → 2020-01-09 16:36 | Outpatient (CLI) | payer BC, SELFPAY ==
[2019-02-16 01:07] VITALS: BMI 29.9
--- NOTE | 2020-01-09 16:50 | MRI_ITS ---
STUDY: MRI LUMBAR SPINE WITH AND WITHOUT CONTRAST REASON FOR EXAM: Male, 59 years old. Lumbar radiculopathy, previous lumbar surgery, right leg pain, right foot control issues TECHNIQUE: Standardized fat and water weighted pulse sequences were obtained in the sagittal and axial planes. IV Dotarem 20ml was administered for the contrast portion of the examination. COMPARISON: 02/16/2019 FINDINGS: T12-L1: Normal endplates. Normal disc height, hydration and morphology. Normal bilateral facet joints. Normal central canal and bilateral lateral recesses. Normal bilateral intervertebral neural foramina. Normal lumbar lordosis. There is no substantial scoliosis. Normal conus medullaris that terminates at T12-L1 L1-2: Mild degenerative endplate changes. Narrowed disc height, desiccation and minor annular bulge.. Normal bilateral facet joints. Normal central canal and bilateral lateral recesses. Normal bilateral intervertebral neural foramina. L2-3: Minor endplate spurring.. Normal disc height, desiccation and small bilateral neuroforaminal disc protrusions.. Normal bilateral facet joints. Normal central canal and bilateral lateral recesses. Mild bilateral neuroforaminal encroachment.. L3-4: Minor endplate spurring.. Degenerative endplate changes. Normal disc height, desiccation and minor annular bulge with right foraminal disc protrusion.. Mild facet arthropathy.. Normal central canal and bilateral lateral recesses. Mild left foraminal encroachment and moderate stenosis on the right. L4-5: Status post right laminotomy Grade 1 retrolisthesis. Narrowed disc space with desiccation of disc and minor annular bulge with left posterolateral/foraminal disc/osteophyte protrusion. Bilateral facet arthropathy. Normal central canal. Mild left lateral recess stenosis and moderate neuroforaminal stenosis. Mild right neuroforaminal encroachment. There is mild right posterolateral epidural fibrosis following contrast enhancement. There also appear to be mild epidural fibrosis in the left anterior epidural space L5-S1: Normal endplates. Normal disc height, desiccation and minimal annular bulge with tiny left paracentral disc protrusion. Bilateral facet arthropathy and thickening of ligamenta flava.. Normal central canal and bilateral lateral recesses. Normal bilateral intervertebral neural foramina. Normal visualized sacral ala. Normal visualized paraspinous soft tissue structures. No significant change since prior study. MRI/Spine Lumbar W/WO Contrast IMPRESSION: No acute fracture or other significant bony pathology.. Postsurgical changes on the right at L4-5 Multilevel spinal stenosis secondary to disc disease and bony hypertrophy with findings as above.. Electronically Signed: Ever Meza MD at 21:45 EST , Service support ,
== END ==
PROVIDERS: PCP Family Medicine
DX: M54.16 Radiculopathy, lumbar region (principal)
CPT/HCPCS: 72158; A9575

== ENCOUNTER 2024-03-06 10:24 | Emergency (ER) | payer OTHER, SELFPAY ==
[2024-03-06 10:26] VITALS: BP 130/75; PULSE 99; RESP 18; TEMP 36.9; O2SAT 96; BMI 28.6
--- NOTE | 2024-03-06 11:13 | CT_ITS ---
STUDY: CT ABDOMEN AND PELVIS WITH CONTRAST REASON FOR EXAM: Male, 63 years old. Abdominal pain and weight loss RADIATION DOSAGE (If Supplied By Facility): CTDIvol = ( 13.55 ) mGy, DLP = ( 1043.66 ) mGycm TECHNIQUE: Transaxial images were obtained from the dome of the diaphragm to the symphysis pubis with oral contrast. IV 100mL Isovue-300 was administered. Sagittal and coronal images were reconstructed. Individualized dose optimization techniques were used for this CT. COMPARISON: None. FINDINGS: The visualized lung bases are unremarkable. The visualized portions of the heart are within normal limits. Normal liver. There are multiple gallstones. Normal spleen. Normal pancreas. Normal bilateral adrenal glands. Normal right kidney. Normal left kidney. Normal visualized stomach. Normal small intestine. There are a few scattered diverticula without CT evidence of acute diverticulitis. The appendix is visualized and appears normal. Appendix seen on coronal recon images 49 through 64. Normal abdominal aorta. Normal inferior vena cava. Normal retroperitoneum. Normal urinary bladder. Normal abdominal wall. Normal osseous structures. CT/Abdomen/Pelvis WITH Contrast IMPRESSION: Cholelithiasis, no CT evidence of acute cholecystitis Scattered colonic diverticula, no CT evidence of acute diverticulitis No free intraperitoneal fluid, air, or suspicious adenopathy, normal appendix visualized Electronically Signed: Jin Hogue MD at 13:30 EST ,
--- NOTE | 2024-03-06 11:13 | EKG12_ITS ---
Test Reason : EPIGASTRIC PAIN Blood Pressure : */* mmHG Vent. Rate : 92 BPM Atrial Rate : 92 BPM P-R Int : 192 ms QRS Dur : 88 ms QT Int : 348 ms P-R-T Axes : 37 22 32 degrees QTcB Int : 430 ms Normal sinus rhythm Normal ECG Confirmed by HUSSAIN MARVIN, ANTONIO ([id number]), metropolitan editor SLOANE CALHOUN ([id number]) on 03/07/2024 7:56:49 AM Referred By: Confirmed By: ANTONIO NIXON MD
--- NOTE | 2024-03-06 11:14 | EDS_ITS ---
HPI HPI - GI History of Present Illness Chief Complaint: Abd Pain Informant: patient and family Narrative Narrative: 63-year-old male presenting to the emergency room with abdominal pain and weight loss. Patient states he is currently not being treated for any medical problems and sees the [facility]. Patient reports that after Thanksgiving he had a case of laryngitis and it took him a while to recover. Shortly thereafter began to have an epigastric pain. He noticed that when he went to eat foods seem did not go into my stomach like normal. He states he is not had any problems with liquid. The pain has now moved down slightly lower to around the periumbilical region. He states that because of his symptoms he has begun to eat less. He has been supplementing with some Ensure drinks. He has not really noticed any change in bowel movements. He states his stool is slightly less in color. He notes a sunburn like pain in his skin of the upper abdomen rating around to his back but no rashes. He states he is urinating normally. No fevers. No cough. He states that he had blood work at the [facility] on the that was normal but he does not know what blood work which is always performed. He denies any prior abdominal surgery. Up until about 1 month ago he states he was taking a lot of ibuprofen for chronic back pain. He switched to something more natural . [facility] Medical History Sciatica Home Medications ?Medication ?Instructions ?Recorded ?Last Taken ?Type bujxenjnbd-XD-cdjksodyfrjkf 6.25 15 ml PO Q6H PRN 03/06/24 03/06/24 History mg-15 mg-325 mg/15 mL oral liquid (Vicks Nyquil Nighttime Relief) pantoprazole 40 mg tablet,delayed 40 mg PO DAILY #14 tabs 03/06/24 Unknown Rx release (Protonix) Allergy/AdvReac Type Severity Reaction Status Date / Time gabapentin Allergy Itching Verified 03/06/24 10:29 shellfish derived Allergy Vomiting Verified 03/06/24 10:29 Social History Smoking Status: Former smoker ROS ROS ED Constitutional Constitutional ED: Reports sweats and weight loss; Denies chills or fever(s) Eyes Eyes: Denies change in vision or diplopia ENT ENT ED: Denies ear pain, rhinorrhea or sore throat Cardiovascular Cardiovascular: Denies chest pain, orthopnea, palpitations or racing heartbeat Respiratory/Chest Respiratory/Chest: Denies cough, dyspnea or orthopnea Gastrointestinal Gastrointestinal: Reports abdominal pain; Denies diarrhea, nausea or vomiting Genitourinary Genitourinary ED: Denies dysuria, hematuria or urinary frequency Musculoskeletal Musculoskeletal: Denies arthralgias or myalgias Integumentary Denies abscess or rash Neurologic Neurologic: Denies headache(s) or weakness Psychiatric Psychiatric: Denies anxiety, depression, suicidal ideation or suicidal thoughts Endocrine Endocrinology: Denies polydipsia, polyphagia or polyuria Allergic/Immunologic Allergic/Immunologic ED: Denies mouth swelling, tongue swelling or urticaria EXAM Physical Exam Const Vital Signs: 03/06/24 10:26 03/06/24 12:53 03/06/24 14:00 Temperature 98.5 F Temperature Source Oral Pulse Rate 99 89 90 Respiratory Rate 18 18 16 Blood Pressure 130/75 H 121/73 H 122/65 H Blood Pressure Mean 93 89 84 Pulse Ox 96 98 98 Oxygen Delivery Method Room Air Room Air 03/06/24 15:30 Temperature 98 F Temperature Source Pulse Rate 94 Respiratory Rate 16 Blood Pressure 120/87 H Blood Pressure Mean 98 Pulse Ox 98 Oxygen Delivery Method Positive well nourished and well developed General Appearance ED: well developed HEENT Reports normocephalic, head/scalp atraumatic and moist mucous membranes Eyes PERRL and EOMs intact bilaterally Neck no lymphadenopathy, supple and no JVD Resp normal respiratory effort and clear to auscultation bilaterally Cardio regular rate, regular rhythm and no murmurs GI normal to inspection, nondistended, normoactive bowel sounds and non-tender Inspection: Negative for abdominal distention Auscultation: normoactive bowel sounds Palpation: soft; Negative for hepatomegaly or splenomegaly Back/Spine no CVA tenderness and normal ROM Extremity normal to inspection General Extremety ED: Negative for edema General Extremity: Negative for edema Neuro oriented x3 and CN's II-XII intact bilaterally Sensorium / Orientation: alert Motor Exam: strength 5/5 throughout Psych mental status grossly normal Mood & Affect: Negative for depressed or tearful Skin no rashes or lesions noted and no wounds MDM MDM MDM Narrative Medical decision making narrative: Differential diagnosis includes but not limited to gastritis esophagitis gastric/duodenal ulcer cholelithiasis pancreatitis malignancy gastroparesis Patient's white count slightly elevated 11.7 hemoglobin 12.4 platelet count of 328. Sodium 133 creatinine 1.20 CO2 28 anion gap is 6 total bilirubin 0.8 direct bilirubin 0.39 AST 65 ALT 119 alk phos 279 troponin is 7 lipase 19. EKG is nonischemic with a sinus rhythm at 92. CT of the abdomen pelvis demonstrates cholelithiasis. A formal gallbladder ultrasound was obtained which shows no pericholecystic fluid. Common bile duct is within normal limits. Noted to have gallbladder wall thickening negative Ferrara's. I spoke with surgery Dr. Hogan. I do not feel that this is necessarily classic biliary colic but certainly is a possibility. We are going to have him follow-up for discussion of possible cholecystectomy versus EGD and in the meantime placed him on Protonix. Patient is comfortable with this plan. We talked about gallbladder diet. History & Record Review Discussion w/independent historian: Patient and Family Lab Data Attestation: I reviewed the patient's lab results. Labs: Laboratory Results - last 24 hr 03/06/24 10:47 WBC 11.7 H RBC 4.04 L Hgb 12.4 L Hct 36.9 L MCV 91.3 MCH 30.7 MCHC 33.6 RDW Std Deviation 41.1 RDW Coeff of Patti 12.2 Plt Count 328 MPV 11.3 Immature Gran % (Auto) 0.600 Neut % (Auto) 79.3 H Lymph % (Auto) 8.9 L [place] % (Auto) 10.7 H Eos % (Auto) 0.2 Baso % (Auto) 0.3 Absolute Neuts (auto) 9.2 H Absolute Lymphs (auto) 1.04 Nucleated RBC % 0 Sodium 133 L Potassium 3.9 Chloride 99 Carbon Dioxide 28.0 Anion Gap 6 BUN 16 Creatinine 1.20 Estim Creat Clear Calc 75.61 Est GFR (MDRD) Af Amer 78 Est GFR (MDRD) Non-Af 65 BUN/Creatinine Ratio 13.3 Glucose 106 Calcium 9.6 Total Bilirubin 0.80 Direct Bilirubin 0.39 H AST 65 H ALT 119 H Alkaline Phosphatase 279 H Troponin I High Sens 7 Total Protein 9.3 H Albumin 2.9 L Globulin 6.4 H Lipase 19 Radiography Diagnostic Testing: Clinical Impression(s) from Imaging Studies Abdomen/Pelvis CT 03/06/24 11:13 IMPRESSION: Cholelithiasis, no CT evidence of acute cholecystitis Scattered colonic diverticula, no CT evidence of acute diverticulitis No free intraperitoneal fluid, air, or suspicious adenopathy, normal appendix visualized Electronically Signed: Jin Hogue MD at 13:30 EST , Abdomen Ultrasound 03/06/24 13:18 IMPRESSION: Multiple shadowing gallstones noted along with gallbladder wall thickening. However, there is no biliary dilatation, or pericholecystic fluid. Glue Jointer Feeder notes a negative Ferrara sign. Findings are equivocal for acute gallbladder disease. Consider HIDA scan if physical examination and lab results are also equivocal Electronically Signed: Jin Hogue MD at 14:42 EST , EKG Initial EKG: Attestation: I personally reviewed and interpreted this EKG as follows: Comments: Normal sinus rhythm ventricular rate of 92 bpm Discharge Plan Triage Chief Complaint: Abd Pain ED Provider: Silvio Carrington Dx/Rx/DC Orders Clinical Impression: Abdominal pain, Weight loss, Cholelithiasis Instructions: Gallstones Dc, ED Gastritis Ulcer No Abx Prescriptions: New pantoprazole [Protonix] 40 mg tablet,delayed release (DR/EC) 40 mg PO DAILY Qty: 14 0RF No Action Vicks Nyquil Nighttime Relief 6.25-15-325 mg/15 mL liquid 15 ml PO Q6H PRN Primary Care Provider: [facility] Referrals: Tony Hogan MD [Med Staff - Active Staff] - As soon as possible (for surgical evaluation) Bebo Gooden MD [Med Staff - Reeling Machine Operator] - Print Language: Indonesian Disposition Disposition: Home, Self Care Discharge Date/Time: 03/06/24 15:31
[2024-03-06 11:46] LABS: Absolute Lymphocyte Count 1.04 X10^3/uL (0.83-4.51); Absolute Neutrophil Count 9.2 X10^3/uL (2.0-7.7); Basophil# 0.03 X10^3/uL; Basophil% 0.3 % (0-1); Eosinophil# 0.02 X10^3/uL; Eosinophils% 0.2 % (0-5); Hematocrit 36.9 % (40-54); Hemoglobin 12.4 g/dL (13.0-16.5); Lymphocyte # 1.04 X10^3/ul (0.83-4.51); Lymphocyte % 8.9 % (19-41); Mean Corp Hgb Conc 33.6 g/dL (32-36); Mean Corpuscular Hgb 30.7 pg (27.0-32.0); Mean Corpuscular Volume 91.3 fL (80-94); Mean Platelet Vol. 11.3 fl (6.2-12.0); Monocyte# 1.25 X10^3/uL; Monocyte% 10.7 % (0-10); NRBC Flagged by Analyzer 0 % (0-5); Neutrophil # 9.24 X10^3/uL (2.7-7.7); Neutrophil % 79.3 % (47-70); Platelet Count 328 K/mm3 (150-450); RBC Distribution Width CV 12.2 % (11.6-14.6); RBC Distribution Width SD 41.1 fl (35.1-43.9); Red Blood Count 4.04 M/mm3 (4.6-6.2); White Blood Count 11.7 K/mm3 (4.4-11.0)
[2024-03-06 12:04] LABS: AST(SGOT) 65 U/L (15-37); Alanine Aminotransfer ALT/SGPT 119 U/L (16-61); Albumin, Serum 2.9 g/dL (3.2-5.0); Alkaline Phosphatase 279 U/L (45-117); Anion Gap 6 (5-15); BUN 16 mg/dL (7-18); BUN/Creat Ratio 13.3 RATIO (10-20); Bilirubin, Direct 0.39 mg/dL (0.00-0.30); Calcium,Total 9.6 mg/dL (8.5-10.1); Chloride 99 mmol/L (98-107); EST Glomerular Filtration Rate 65 mL/min (>60); Est Glom Filt Rate - Afr Amer 78 mL/min (>60); Estimated Creatinine Clearance 75.61 ml/min; Globulin 6.4 g/dL (2.2-4.2); Glucose 106 mg/dL (74-106); Lipase 19 U/L (13-75); Potassium 3.9 mmol/L (3.5-5.1); Protein, Total 9.3 g/dL (6.4-8.2); Sodium Level 133 mmol/L (136-145); Troponin-I HS 7 pg/mL (3.0-78.0)
[2024-03-06 12:53] VITALS: BP 121/73; PULSE 89; RESP 18; O2SAT 98
--- NOTE | 2024-03-06 13:18 | US_ITS ---
STUDY: ABDOMINAL ULTRASOUND - RIGHT UPPER QUADRANT REASON FOR VISIT: Male, 63 years old diffuse abdominal pain TECHNIQUE: Ultrasound evaluation of the right upper quadrant was performed with real-time and static steward-scale imaging. TECHNICAL QUALITY: Limited. Examination limited by bowel gas. COMPARISON: CT from earlier today FINDINGS: Liver: The liver measures 18.1 cm. There is normal echogenicity of the liver. The bile ducts are within normal limits. There is hepatic color flow. The direction of portal flow is hepatopetal. There is no demonstrated mass lesion. Gallbladder: Normal distended gallbladder. The gallbladder wall measures 6.1 mm. There is a negative sonographic Ferrara''s sign. There is no pericholecystic fluid. There are multiple echogenic structures within the gallbladder, consistent with multiple gallstones. Common Bile Duct (C.B.D.): The common bile duct measures 3.5 mm. Pancreas: Visualized pancreas is sonographically normal Right Kidney: Normal size of the right kidney. The right kidney measures 10.8 x 5.7 x 5.3 cm. Normal renal cortex. The right cortex measures 1.9 cm. There is no demonstrated renal mass or cyst. There is no right hydronephrosis. US/Abdomen Limited IMPRESSION: Multiple shadowing gallstones noted along with gallbladder wall thickening. However, there is no biliary dilatation, or pericholecystic fluid. Lithoduplicator Operator notes a negative Ferrara sign. Findings are equivocal for acute gallbladder disease. Consider HIDA scan if physical examination and lab results are also equivocal Electronically Signed: Jin Hogue MD at 14:42 EST ,
[2024-03-06 14:00] VITALS: BP 122/65; PULSE 90; RESP 16; O2SAT 98
[2024-03-06 15:30] VITALS: BP 120/87; PULSE 94; RESP 16; TEMP 36.6; O2SAT 98
== END 2024-03-06 15:31 | disposition home or self-care (01) ==
PROVIDERS: Emergency Provider Emergency Medicine; Visit Provider Emergency Medicine
DX: K80.20 Calculus of gallbladder without cholecystitis without obstruction (principal); R63.4 Abnormal weight loss; Z68.28 Body mass index [BMI] 28.0-28.9, adult; Z87.891 Personal history of nicotine dependence
CPT/HCPCS: 74177; 76705; 80048; 80076; 83690; 84484; 85025; 93005; 99283; Q9967; A4216

== ENCOUNTER 2024-03-14 17:17 | Emergency (ER) | payer OTHER, SELFPAY ==
[2024-03-14 17:18] VITALS: BP 129/75; PULSE 86; RESP 18; TEMP 37.1; O2SAT 97; BMI 28.6
[2024-03-14 17:45] LABS: Absolute Lymphocyte Count 1.55 X10^3/uL (0.83-4.51); Absolute Neutrophil Count 7.9 X10^3/uL (2.0-7.7); Basophil# 0.04 X10^3/uL; Basophil% 0.4 % (0-1); Eosinophil# 0.06 X10^3/uL; Eosinophils% 0.6 % (0-5); Hematocrit 33.2 % (40-54); Hemoglobin 10.9 g/dL (13.0-16.5); Lymphocyte # 1.55 X10^3/ul (0.83-4.51); Lymphocyte % 14.6 % (19-41); Mean Corp Hgb Conc 32.8 g/dL (32-36); Mean Corpuscular Hgb 30.2 pg (27.0-32.0); Mean Platelet Vol. 10.7 fl (6.2-12.0); Monocyte# 0.96 X10^3/uL; NRBC Flagged by Analyzer 0 % (0-5); Neutrophil # 7.92 X10^3/uL (2.7-7.7); Neutrophil % 74.6 % (47-70); Platelet Count 462 K/mm3 (150-450); RBC Distribution Width SD 43.8 fl (35.1-43.9); Red Blood Count 3.61 M/mm3 (4.6-6.2); White Blood Count 10.6 K/mm3 (4.4-11.0)
[2024-03-14 18:11] LABS: ALB/GLOB Ratio 0.4 RATIO (0.9-2.4); AST(SGOT) 47 U/L (15-37); Alanine Aminotransfer ALT/SGPT 96 U/L (16-61); Albumin, Serum 2.7 g/dL (3.2-5.0); Alkaline Phosphatase 281 U/L (45-117); Anion Gap 7 (5-15); BUN 15 mg/dL (7-18); BUN/Creat Ratio 13.4 RATIO (10-20); Calcium,Total 9.9 mg/dL (8.5-10.1); Chloride 99 mmol/L (98-107); Creatinine, Serum 1.12 mg/dL (0.70-1.30); EST Glomerular Filtration Rate 70 mL/min (>60); Est Glom Filt Rate - Afr Amer 85 mL/min (>60); Estimated Creatinine Clearance 81.03 ml/min; Glucose 114 mg/dL (74-106); Potassium 4.2 mmol/L (3.5-5.1); Protein, Total 8.7 g/dL (6.4-8.2); Sodium Level 133 mmol/L (136-145)
[2024-03-14] MEDS: 0.9% Normal Saline (1000mL) 1,000 ML 1000 ML IV (18:41)
[2024-03-14] MEDS: Morphine 4 MG/ML Syringe IV ×2 (18:41→21:07)
[2024-03-14] MEDS: Ondansetron 4 MG/2 ML Vial IV (18:41)
[2024-03-14 18:47] LABS: Color, Urine Yellow (Yellow); Glucose, Dipstick Normal (Normal); Ketone-Dipstick Negative (Negative); Leukocyte Esterase-Dipstick 25 /ul (Negative); Nitrite-Dipstick Negative (Negative); Occult Blood-Urine Negative /ul (Negative); Protein-Dipstick 30 mg/dl (Negative); Specific Gravity, Urine 1.015 (1.002-1.030); Urine Bilirubin Dipstick Negative (Negative); Urine Clarity Clear (Clear); Urine Urobilinogen 1 mg/dl (Normal)
[2024-03-14 18:54] LABS: Lipase 25 U/L (13-75)
--- NOTE | 2024-03-14 19:00 | EDS_ITS ---
HPI HPI - GI History of Present Illness Chief Complaint: Abd Pain Informant: patient Abdominal Pain/Flank Pain Onset: Days Context: Gradual Onset Timing: Waxes and wanes Quality: Aching and Burning Location: Epigastric, RUQ and LUQ Worsened by: Nothing Relieved by: - (Analgesic medication) Nausea/Vomiting/Emesis GI Symptom: Positive for Nausea; Negative for Vomiting Diarrhea/Melena/Hematochezia GI Symptom: Negative for Diarrhea, Melena or Hematochezia Associated Symptoms Associated Symptoms: Negative for Dysuria, Frequency or Hematuria Narrative Narrative: Patient presents with abdominal pain that has been waxing and waning over the past few days. Patient states he was seen here on 03/06/2024 and was diagnosed with cholelithiasis. Patient states he has an appointment with Dr. Hogan on Wednesday, 3 days from now. Patient states he has been using oxycodone at home with some relief. Patient states he ran out of that. Patient admits to some nausea but denies any vomiting. Patient describes his pain as aching and burning. Patient states it is mainly over the upper abdomen and into his back. Patient denies any fevers but admits to some subjective chills and sweats. Patient denies any diarrhea, melena, or hematochezia. Patient denies any urinary complaints. [facility] Medical History (Updated 03/14/24 @ 21:[address] Rosales Gudino, ) Sciatica Home Medications ?Medication ?Instructions ?Recorded ?Last Taken ?Type oxycodone-acetaminophen 5 mg-325 1 tab PO Q6H PRN PRN Pain 3 days 03/14/24 Unknown Rx mg tablet #12 TABLETS Allergy/AdvReac Type Severity Reaction Status Date / Time gabapentin Allergy Itching Verified 03/14/24 17:18 shellfish derived Allergy Vomiting Verified 03/14/24 17:18 Surgical History (Updated 03/14/24 @ 21:[address] Rosales Gudino DO) History of back surgery Social History Smoking Status: Former smoker ROS ROS ED Constitutional Constitutional ED: Denies chills or fever(s) Eyes Eyes: Denies blurry vision or change in vision ENT ENT ED: Denies rhinorrhea or sore throat Cardiovascular Cardiovascular: Denies chest pain or palpitations Respiratory/Chest Respiratory/Chest: Denies cough or dyspnea Gastrointestinal Gastrointestinal: Denies nausea or vomiting Genitourinary Genitourinary ED: Denies dysuria or hematuria Musculoskeletal Musculoskeletal: Denies back pain or neck pain Integumentary Denies abscess or rash Neurologic Neurologic: Denies headache(s) or weakness Allergic/Immunologic Allergic/Immunologic ED: Denies mouth swelling or urticaria EXAM Physical Exam Const Vital Signs: 03/14/24 17:18 Temperature 98.7 F Temperature Source Oral Pulse Rate 86 Respiratory Rate 18 Blood Pressure 129/75 H Blood Pressure Mean 93 Pulse Ox 97 Oxygen Delivery Method Room Air Positive well nourished and well developed General Appearance ED: well developed and NAD HEENT Reports moist mucous membranes normocephalic and atraumatic Neck supple and no JVD Resp normal respiratory effort and clear to auscultation bilaterally Cardio regular rate and regular rhythm GI non-distended Palpation: soft and tender epigastric, LUQ and RUQ; Negative for guarding or rebound tenderness present Extremity full ROM General Extremety ED: Negative for edema or tenderness General Extremity: Negative for edema Neuro CN's II-XII intact bilaterally, moves all extremities and no sensory deficits noted Sensorium / Orientation: alert Motor Exam: strength 5/5 throughout Psych mental status grossly normal MDM MDM MDM Narrative Medical decision making narrative: Differential diagnosis includes cholecystitis, cholelithiasis, peptic ulcer disease, duodenal ulcer, colitis, urinary tract infection, pyelonephritis, ureteral calculus, and viral illness. CBC will be obtained to assess for leukocytosis and anemia. Comprehensive metabolic profile will be obtained to assess for hepatic function, renal function, and electrolyte abnormality. Lipase will be obtained to assess for pancreatitis. Urinalysis will be obtained to assess for urinary tract infection and hematuria. Lab Data Attestation: I reviewed the patient's lab results. Lab results narrative: Was reviewed. There is a slight anemia with a hemoglobin of 10.9 and hematocrit 33.2. Platelets were slightly elevated at 462. Comprehensive metabolic profile was reviewed. Total bilirubin was normal at 0.50. AST was slightly elevated at 47, ALT was slightly elevated at 96. Alkaline phosphatase was slightly elevated at 281. The remainder is within normal limits. Lipase was reviewed and was normal at 25. Urinalysis was reviewed. Leukocyte esterase was 25. There are 5-10 white blood cells and 1+ bacteria. Labs: Laboratory Results - last 24 hr 03/14/24 03/14/24 17:32 18:34 WBC 10.6 RBC 3.61 L Hgb 10.9 L Hct 33.2 L MCV 92.0 MCH 30.2 MCHC 32.8 RDW Std Deviation 43.8 RDW Coeff of Patti 13.0 Plt Count 462 H MPV 10.7 Immature Gran % (Auto) 0.800 Neut % (Auto) 74.6 H Lymph % (Auto) 14.6 L [place] % (Auto) 9.0 Eos % (Auto) 0.6 Baso % (Auto) 0.4 Absolute Neuts (auto) 7.9 H Absolute Lymphs (auto) 1.55 Nucleated RBC % 0 Sodium 133 L Potassium 4.2 Chloride 99 Carbon Dioxide 27.0 Anion Gap 7 BUN 15 Creatinine 1.12 Estim Creat Clear Calc 81.03 Est GFR (MDRD) Af Amer 85 Est GFR (MDRD) Non-Af 70 BUN/Creatinine Ratio 13.4 Glucose 114 H Calcium 9.9 Total Bilirubin 0.50 AST 47 H ALT 96 H Alkaline Phosphatase 281 H Total Protein 8.7 H Albumin 2.7 L Globulin 6.0 H Albumin/Globulin Ratio 0.4 L Lipase 25 Urine Color Yellow Urine Clarity Clear Urine pH 5.0 Ur Specific [place] 1.015 Urine Protein 30 H Urine Glucose (UA) Normal Urine Ketones Negative Urine Occult Blood Negative Urine Nitrite Negative Urine Bilirubin Negative Urine Urobilinogen 1 H Ur Leukocyte Esterase 25 H Additional Tests and Interventions Additional Tests or Interventions: Urine culture was ordered. Treatment and Re-Evaluation :: Patient was given IV fluids, morphine, and Zofran. Patient was given a repeat dose of morphine. Patient would prefer to go for nausea oral analgesics. Since the patient is asymptomatic with any dysuria or frequency, I do not feel the patient needs to be started on antibiotics for urinary tract infection at this time. Case was discussed with Dr. Rios. He is agreeable to letting patient go home and following up with Dr. Hogan as scheduled. Patient was given a prescription for Percocet. Patient was instructed to eat a bland diet. Patient was redirected to return if worse in any way. Patient understood and was agreeable with the plan. All questions were answered. Discharge Plan Triage Chief Complaint: Abd Pain ED Provider: Rosales Gudino Dx/Rx/DC Orders Clinical Impression: Cholelithiasis, Abdominal pain Instructions: ED Abdominal Pain Gallstone Poss Prescriptions: New oxycodone-acetaminophen 5-325 mg tablet 1 tab PO Q6H PRN PRN (Reason: Pain) 3 Days Qty: 12 0RF Primary Care Provider: [facility] Referrals: Tony Hogan MD [Med Staff - Active Staff] - Keep Oswald appointment [facility] [Primary Care Provider] - Print Language: Singaporean Disposition Disposition: Home, Self Care
[2024-03-14 19:11] LABS: Bacteria 1+ /hpf (None Seen); Mucous, Urine 1+ /hpf (<or=2+); Red Blood Cells-Urine 0-5 SEEN /hpf (0-5); Squamous Epithelial Cells - UA 0-5 SEEN /hpf (0-5); White Blood Cells 5-10 SEEN /hpf (0-5)
[2024-03-14 19:17] VITALS: BP 119/73; PULSE 77; RESP 18; O2SAT 96
[2024-03-14 21:00] VITALS: BP 131/80; PULSE 80; RESP 18; O2SAT 98
[2024-03-14 21:43] VITALS: BP 126/77; PULSE 75; RESP 18; TEMP 37; O2SAT 95
== END 2024-03-14 22:10 | disposition home or self-care (01) ==
PROVIDERS: Emergency Provider Emergency Medicine; Visit Provider Emergency Medicine
DX: K80.20 Calculus of gallbladder without cholecystitis without obstruction (principal); Z87.891 Personal history of nicotine dependence; R10.9 Unspecified abdominal pain
CPT/HCPCS: 80053; 81001; 83690; 85025; 96361; 96374; 96375; 96376; 99284; A4216; J2405